=== PATIENT | male | born 1955 | race Caucasian/White ===

== ENCOUNTER 2016-10-11 13:35 | Inpatient (IN) ==
[2016-10-11] MEDS ORDERED: *HR* Morphine 2 MG/ML SYRINGE IVP ONE (13:43)
[2016-10-11] MEDS ORDERED: Ondansetron 4 MG/2 ML VIAL IVP ONE (13:43)
[2016-10-11 13:51] LABS: Basophils % 0.1 %; Eosinophils % 0.2 %; Hematocrit 40.6 % (37.5-50.1); Hemoglobin 14.1 g/dL (12.9-16.9); Immature Granulocytes % 0.8 % (0-4); Lymphocytes # 1.2 K/mcL (0.6-4.6); Mean Corpuscular HGB Conc 34.7 g/dL (31.6-35.5); Mean Corpuscular Hemoglobin 30.6 pg (28.0-33.3); Mean Corpuscular Volume 88.1 fL (83.0-100.0); Mean Platelet Volume 10.4 fL (9.4-12.4); Monocytes # 1.4 K/mcL (0.0-1.3); Neutrophils # 12.6 K/mcL (1.6-8.9); Platelet Count 288 K/mcL (140-400); Red Blood Count 4.61 M/mcL (4.19-5.50); Red Cell Distribution Width 13.4 % (11.5-14.5); Segmented Neutrophils % 81.9 %
[2016-10-11] MEDS ORDERED: Ketorolac 30 MG/ML VIAL IVP ONE (13:55)
[2016-10-11 13:57] LABS: INR 1.1; Prothrombin Time 12.1 Seconds (9.4-12.1)
[2016-10-11 14:07] LABS: Albumin 3.5 g/dL (3.5-5.0); Albumin/Globulin Ratio 0.9 (1.1-2.2); Bilirubin,Direct 0.8 mg/dL (0.0-0.5); Bilirubin,Indirect 1.3 mg/dL (0.0-1.2); Bilirubin,Total 2.1 mg/dL (0.2-1.2); Calcium 10.3 mg/dL (8.6-10.8); Globulin 3.8 g/dL (2.4-3.5); Total Protein 7.3 g/dL (6.0-8.3)
[2016-10-11] MEDS ORDERED: 0.9 % Sodium Chloride 1,000 ML IVC ONE ×2 (14:07→16:11)
[2016-10-11 14:08] LABS: Bilirubin,Urine Small (Negative); Blood,Urine Negative (Negative); Clarity,Urine Clear (Clear); Color,Urine Dark Yellow (Yellow); Glucose,Urine (UA) >=1000 mg/dL (Normal); Ketones,Urine Negative (Negative); Leukocyte Esterase,Urine Negative (Negative); Nitrite,Urine Negative (Negative); Protein,Urine Trace mg/dL (Neg-Trace); Specific Gravity,Urine > 1.030 (1.010-1.025); Urobilinogen,Urine Normal (Normal)
[2016-10-11 14:10] LABS: Bacteria,Urine None Seen per hpf (None-Few); Hyaline Casts,Urine None Seen per lpf (None-Few); RBC,Urine 0-3 per hpf (0-3); Squamous Epithelial Cell,Urine Moderate per lpf (None-Few); WBC,Urine 0-3 per hpf (0-3)
[2016-10-11] MEDS ORDERED: 0.9 % Sodium Chloride 1,000 ML ONE (14:38)
[2016-10-11] MEDS ORDERED: MetroNIDAZOLE 500 MG/100 ML 500 MG/100 ML BAG IVPB ONE (15:11)
[2016-10-11] MEDS ORDERED: Milk and Molasses Enema 200 ML RC ONE (15:13)
--- NOTE | 2016-10-11 15:38 | Emergency Department Note ---
Disposition Clinical Impression: Constipation, Sigmoiditis, Dehydration, Lactic acidosis, Leukocytosis, Chronic hypotension, Urinary retention Disposition: Admitted As Inpatient Condition: Serious Referrals: Óscar Mei Jr, MD [Primary Care Provider] - Forms: Work/School Release, ED Satisfaction Letter Time of Disposition: 15:46 Abdominal Pain HPI - General Chief Complaint: ED Abdominal Pain Stated Complaint: constipation/dizzy Time Seen by Provider: 10/11/16 13:43 Source: patient, EMS Nursing Notes Reviewed: Yes Vital Signs Reviewed: Yes - History of Present Illness HPI Narrative: 61yo M presents to the ER for constipation and abdominal pain and dehydration. [place] [facility]. he has had increasing abdominal pain for the past week and has had no bowel movements for at least 6-7 days. He admits to liquid stool passing around this constipation. Denies vomiting but does feel sick to her stomach. Poor by mouth intake for the past week as well. He denies any chest pain or shortness of breath. No fevers. No chills. He does admit to increasing weakness. Onset (ago): day(s) (6-7 days ago) Consistency: constant Location: suprapubic Pain Severity: moderate Pain Scale: 2 Quality: aching, fullness Radiation: none Migration to: no migration Improves with: nothing Worsens with: eating, movement Associated symptoms: Reports: nausea, constipation. Denies: vomiting, diarrhea , fever, chills Treatments prior to arrival: none - Related Data Allergies Allergy/AdvReac Type Severity Reaction Status Date / Time No Known Allergies Allergy Verified 10/11/16 13:49 All systems ED: reviewed and negative except as stated. Constitutional: Reports: as per HPI Eyes: Reports: as per HPI Cardiovascular: Reports: as per HPI. Denies: chest pain, palpitations Respiratory: Reports: as per HPI. Denies: dyspnea Gastrointestinal: Reports: abdominal pain, nausea, constipation. Denies: vomiting Genitourinary: Reports: other (Decreased urine output) Musculoskeletal: Reports: as per HPI Integumentary: Reports: as per HPI Neurological: Reports: as per HPI Psychiatric: Reports: as per HPI Endocrine: Reports: as per HPI Hematological/Lymphatic: Reports: as per HPI Abdominal Pain PMH - Past Medical History Medical history: Reports: diabetes, GERD, hypertension, other Male Surgical History: Reports: coronary bypass (CABG), pacemaker/AICD Psychiatric history: Reports: depression - Social History Smoking status: Never smoker Alcohol use: Reports: none Drug use: Reports: none Physical Exam - General Limitations: age General appearance: alert, in no apparent distress - Head Head exam: atraumatic, normocephalic - Chest Chest inspection: Present: normal inspection - Respiratory Respiratory exam: Present: normal lung sounds bilaterally - Cardiovascular Cardiovascular exam: Present: regular rate, normal rhythm - Abdominal Exam Abdominal exam: Present: soft, tenderness, distention (Suprapubic distention noted on exam. Positive pain to palpation to this region.), diminished bowel sounds Abdominal tenderness: Present: suprapubic - Extremities Exam Extremities exam: Present: normal inspection - Back Exam Back exam: Present: normal inspection - Neurological Exam Neurological exam: Present: alert, oriented X3 - Psychiatric Psychiatric exam: Present: normal affect, normal mood - Skin Skin exam: Present: warm, dry, other (Psoriasis type rash) Course Course Narrative: Concerns on arrival for bladder distention likely secondary to significant constipation. He placed a Florence catheter and got 2 L of urine back almost immediately. We then clamped the Florence catheter. We then started getting a some IV fluids as his lactate was elevated at 7.2. He was afebrile. I suspect this to be from dehydration. His BUN/creatinine are also elevated. He does admit to poor by mouth intake secondary to the pain for the past week. I did a CT scan abdomen and pelvis which showed evidence of significant constipation as well as evidence of sigmoiditis. He does have an elevated white count. I started him on Levaquin and Flagyl for this. He is also getting IV fluids. We have gotten around 2700 mL's of urine back after the catheter was placed. His abdominal pain has improved. His blood pressure remains low but he states he runs chronically low at around 85 systolic. the hospitalist saw the patient and thought he might need ICU placement overnight. will speak with ICU attending. Vital Signs Temperature 97.6 F 10/11/16 13:37 Pulse Rate 96 10/11/16 13:37 Respiratory Rate 18 10/11/16 13:37 Blood Pressure 68/52 10/11/16 13:37 O2 Sat by Pulse Oximetry 99 10/11/16 13:37 Temperature 97.6 F 10/11/16 13:37 Pulse Rate 80 10/11/16 15:06 Respiratory Rate 18 10/11/16 15:06 Blood Pressure 99/60 10/11/16 15:06 O2 Sat by Pulse Oximetry 98 10/11/16 15:06 Oxygen Delivery Oxygen Delivery Room Air Abdominal Pain - MDM Narrative Medical decision making narrative: It is likely the patient could be constipated from starting Cymbalta. - Medical Records Medical records reviewed: Yes I reviewed the patient's medical records. - Lab Data Lab results reviewed: Yes I reviewed the patient's lab results. Result diagrams: 10/11/16 13:42 10/11/16 13:42 Lab Results 10/11/16 10/11/16 10/11/16 Range/Units 13:42 13:42 13:42 WBC 15.4 H (4.3-11.1) K/mcL RBC 4.61 (4.19-5.50) M/mcL Hgb 14.1 (12.9-16.9) g/dL Hct 40.6 (37.5-50.1) % MCV 88.1 (83.0-100.0) fL MCH 30.6 (28.0-33.3) pg MCHC 34.7 (31.6-35.5) g/dL RDW 13.4 (11.5-14.5) % Plt Count 288 (140-400) K/mcL MPV 10.4 (9.4-12.4) fL Immature Gran % 0.8 (0-4) % Seg Neutrophils % 81.9 % Lymphocytes % 8.0 % Monocytes % 9.0 % Eosinophils % 0.2 % Basophils % 0.1 % Neutrophils # 12.6 H (1.6-8.9) K/mcL Lymphocytes # 1.2 (0.6-4.6) K/mcL Monocytes # 1.4 H (0.0-1.3) K/mcL Eosinophils # 0.0 (0.0-0.6) K/mcL Basophils # 0.0 (0.0-0.2) K/mcL PT 12.1 (9.4-12.1) Seconds INR 1.1 Sodium 134 L (136-145) mEq/L Potassium 4.0 (3.5-4.5) mEq/L Chloride 95 L (98-109) mEq/L Carbon Dioxide 22 (19-29) mEq/L BUN 43 H (8-26) mg/dL Creatinine 2.35 H (0.72-1.25) mg/dL Est GFR ( Amer) 34 L (> 60) Est GFR (Non-Af Amer) 28 L (> 60) BUN/Creatinine Ratio 18 (6-26) Glucose 119 H (70-99) mg/dL Calculated Osmolality 290 (280-300) Lactic Acid (0.5-2.2) mmol/L Calcium 10.3 (8.6-10.8) mg/dL Total Bilirubin 2.1 H (0.2-1.2) mg/dL Direct Bilirubin 0.8 H (0.0-0.5) mg/dL Indirect Bilirubin 1.3 H (0.0-1.2) mg/dL AST 17 (5-34) Units/L ALT 15 (0-55) Units/L Alkaline Phosphatase 105 (38-126) Units/L Troponin I (0-0.03) ng/mL Serum Total Protein 7.3 (6.0-8.3) g/dL Albumin 3.5 (3.5-5.0) g/dL Globulin 3.8 H (2.4-3.5) g/dL Albumin/Globulin Ratio 0.9 L (1.1-2.2) Lipase 8 (8-78) Units/L Urine Color (Yellow) Urine Clarity (Clear) Urine pH (5.0-8.0) pH Units Ur Specific [place] (1.010-1.025) Urine Protein (Neg-Trace) mg/dL Urine Glucose (UA) (Normal) mg/dL Urine Ketones (Negative) mg/dL Urine Blood (Negative) Urine Nitrite (Negative) Urine Bilirubin (Negative) Urine Urobilinogen (Normal) mg/dL Ur Leukocyte Esterase (Negative) Urine Microscopic RBC (0-3) per hpf Urine Microscopic WBC (0-3) per hpf Ur Squamous Epith Cells (None-Few) per lpf Urine Bacteria (None-Few) per hpf Hyaline Casts (None-Few) per lpf Ur Culture Indicated? (NO) 10/11/16 10/11/16 10/11/16 Range/Units 13:42 13:42 13:59 WBC (4.3-11.1) K/mcL RBC (4.19-5.50) M/mcL Hgb (12.9-16.9) g/dL Hct (37.5-50.1) % MCV (83.0-100.0) fL MCH (28.0-33.3) pg MCHC (31.6-35.5) g/dL RDW (11.5-14.5) % Plt Count (140-400) K/mcL MPV (9.4-12.4) fL Immature Gran % (0-4) % Seg Neutrophils % % Lymphocytes % % Monocytes % % Eosinophils % % Basophils % % Neutrophils # (1.6-8.9) K/mcL Lymphocytes # (0.6-4.6) K/mcL Monocytes # (0.0-1.3) K/mcL Eosinophils # (0.0-0.6) K/mcL Basophils # (0.0-0.2) K/mcL PT (9.4-12.1) Seconds INR Sodium (136-145) mEq/L Potassium (3.5-4.5) mEq/L Chloride (98-109) mEq/L Carbon Dioxide (19-29) mEq/L BUN (8-26) mg/dL Creatinine (0.72-1.25) mg/dL Est GFR ( Amer) (> 60) Est GFR (Non-Af Amer) (> 60) BUN/Creatinine Ratio (6-26) Glucose (70-99) mg/dL Calculated Osmolality (280-300) Lactic Acid 7.2 H* (0.5-2.2) mmol/L Calcium (8.6-10.8) mg/dL Total Bilirubin (0.2-1.2) mg/dL Direct Bilirubin (0.0-0.5) mg/dL Indirect Bilirubin (0.0-1.2) mg/dL AST (5-34) Units/L ALT (0-55) Units/L Alkaline Phosphatase (38-126) Units/L Troponin I 1.94 H* (0-0.03) ng/mL Serum Total Protein (6.0-8.3) g/dL Albumin (3.5-5.0) g/dL Globulin (2.4-3.5) g/dL Albumin/Globulin Ratio (1.1-2.2) Lipase (8-78) Units/L Urine Color Dark Yellow (Yellow) Urine Clarity Clear (Clear) Urine pH 6.0 (5.0-8.0) pH Units Ur Specific [place] > 1.030 H (1.010-1.025) Urine Protein Trace (Neg-Trace) mg/dL Urine Glucose (UA) >=1000 H (Normal) mg/dL Urine Ketones Negative (Negative) mg/dL Urine Blood Negative (Negative) Urine Nitrite Negative (Negative) Urine Bilirubin Small H (Negative) Urine Urobilinogen Normal (Normal) mg/dL Ur Leukocyte Esterase Negative (Negative) Urine Microscopic RBC 0-3 (0-3) per hpf Urine Microscopic WBC 0-3 (0-3) per hpf Ur Squamous Epith Cells Moderate H (None-Few) per lpf Urine Bacteria None Seen (None-Few) per hpf Hyaline Casts None Seen (None-Few) per lpf Ur Culture Indicated? NO (NO) - Radiology Data Radiology results reviewed: Yes I reviewed the patient's radiology results. - EKG Data EKG attestation: Yes I reviewed and interpreted this EKG. EKG results narrative: EKG shows a rate of 98. Normal sinus rhythm. Normal axis. IA interval 188. QRS 94. QT 379. T-wave inversions noted in V2 V3. These were seen on EKG from earlier today at the [place] [facility].
[2016-10-11] MEDS ORDERED: Levofloxacin 500 MG/100 ML 500 MG/100 ML BAG IVPB SCH (16:00)
--- NOTE | 2016-10-11 16:29 | Pulmonology History & Physical ---
<Sushil Rudolph - Last Filed: 10/11/16 16:48> Date of Encounter: 10/11/16 Time of Encounter: 16:27 Assessment and Plan (1) Constipation Current visit: Yes Status: Acute The patient has extensive vascular history and lactic acid of 7.2 with symptoms of dizziness as well as troponin of 1.94. Appropriate to admit to the ICU for close observation at this time. Urine specific gravity consistent with dehydration. Will monitor and repeat labs after additional fluids have been given. Milk and molasses enema ordered. CT of the abdomen demonstrated large about of stool within the rectum as well as a moderate amount of gas and stool throughout the remainder of the colon consistent with constipation. There is wall thickening and adjacent inflammatory changes surrounding the sigmoid. Findings consistent with sigmoiditis. Will continue IV antibiotics at this time. Metronidazole and levofloxacin. Dulcolax ordered. If patient is stable overnight will transfer to step down tomorrow. Qualifiers: Constipation type: slow transit constipation Qualified Code(s): K59.01 - Slow transit constipation (2) Chronic hypotension Current visit: Yes Status: Chronic Patient states that his blood pressures are typically in the 80s systolic. Patient is at his baseline. (3) Dehydration Current visit: Yes Status: Acute (4) Lactic acidosis Current visit: Yes Status: Acute Scheduled redraw with recheck in the morning. Will continue to monitor and trend. (5) Leukocytosis Current visit: Yes Status: Acute Will continue to monitor. Unclear etiology at this time. Qualifiers: Leukocytosis type: unspecified Qualified Code(s): D72.829 - Elevated white blood cell count, unspecified (6) Sigmoiditis Current visit: Yes Status: Acute Unclear etiology at this time. Ischemia vs infectious. Continue antibiotics at this time. If lactic acid and white count continue to increase will obtain a surgical consult. (7) Urinary retention Current visit: Yes Status: Acute Likely secondary to stool burden causing compressive obstruction of urethra. Will continue catheter at this time. Upon decrease of stool burden with discontinue goff and assess for urinary output. If the patient has continued urinary retention a urology consult will be necessary. (8) Psoriasis Current visit: Yes Status: Acute Continue home medications. (9) DVT prophylaxis Current visit: Yes Status: Acute CARLOS hose and SCDs. Protonix for GI prophylaxis. History of Present Illness Chief complaint: constipation HPI: Mr. Siu is a 61 year old male with PMH significant for psoriasis, DM2, GERD, HTN, CAD, colon cancer status post resection who presented to the ER for abdominal pain and constipation. He states that his symptoms started one week ago and he has not had a bowel movement since that time. He admits to small liquid bowel movements, but continues to feel distended. His abdominal pain causes him to have nausea and poor oral intake over this time period as well. He denies vomiting. He states that he did not have any blood in stools prior to the onset of his symptoms. He has never had anything like this before and he denies any recent changes to medications. His mother in law in the room states that the patient is typically bed bound and lives at home, but on good days he is able to ambulate around the house with a walker. He states that the reason for being bed bound is that he becomes very dizzy at times even when he sits up. He states that this has been ongoing for the past 10 months. 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 While in the ER he was given 2L of fluids and was started on metronidazol and levofloxacin for findings of sigmoiditis on abdominal CT. He was found to have a lactic acid of 7.2 and troponin of 1.94. He denies any chest pain. Past Med Surg Social Fam HX - Past Medical History Medical history: diabetes, GERD, hypertension, other Psychiatric history: depression - Past Surgical History Surgical History: colectomy (partial secondary to colon cancer), coronary bypass (CABG) (x6), other (carpal tunnel surgery bilaterally), pacemaker - Social History Smoking Status: Never smoker Alcohol use: none Drug use: none - Family History Mother Hx Family Cardiac Disorders: Yes (heart failure) Hx Family GI Disorders: Yes (DM2) Father Hx Family Cardiac Disorders: Yes (heart failure) Hx Family Endocrine Disorder: Yes (DM2) Medications and Allergies Atorvastatin Calcium [Lipitor] 80 mg PO HS 10/11/16 [History] Cholecalciferol (D-3) [Vitamin D] 1,000 unit PO DAILY 10/11/16 [History] Clobetasol Propionate 0.05% [Temovate] 1 appl TP BID 10/11/16 [History] Clobetasol Propionate [Cormax] 1 appl TP BID PRN 10/11/16 [History] Clopidogrel [Plavix] 75 mg PO DAILY 10/11/16 [History] Dextrose [Glucose] 16 gm PO ONCE PRN 10/11/16 [History] Duloxetine HCl [Cymbalta] 60 mg PO DAILY 10/11/16 [History] Folic Acid 1 mg PO DAILY 10/11/16 [History] Insulin ASPART [NovoLOG] 18 unit SQ TIDWM 10/11/16 [History] Insulin DETEMIR [Levemir] 44 unit SQ BID 10/11/16 [History] Loratadine [Claritin] 10 mg PO DAILY 10/11/16 [History] Metformin HCl [Glucophage] 1,000 mg PO BID 10/11/16 [History] Methotrexate [Otrexup] 10 mg PO QWEEK 10/11/16 [History] Midodrine [ProAmatine] 5 mg PO 0800,1200,1700 10/11/16 [History] Allergies alcohol Adverse Reaction (Verified 10/11/16 16:04) See Comments per [facility] ([facility]) All Systems: A 10-system review of systems was performed and is negative for pertinent findings except as documented above in the HPI. - Constitutional Constitutional: weakness, no chills, no fever(s) - EENT Eyes: no loss of vision Ears: no decreased hearing Nose, mouth and throat: dizziness, no dysphagia - Cardiovascular Cardiovascular: no chest pain, no diaphoresis, no dyspnea, no edema, no palpitations - Respiratory Respiratory: no cough, no dyspnea, no hemoptysis - Gastrointestinal Gastrointestinal: abdominal pain, nausea, other (constipation), no hematemesis, no hematochezia, no melena, no vomiting - Genitourinary Genitourinary: difficulty urinating, no dysuria - Musculoskeletal Musculoskeletal: joint pain, muscle weakness, numbness (feet, chronic), tingling , no joint swelling - Integumentary Integumentary: rash - Neurological Neurological: dizziness, numbness (feet bilaterally), tingling, weakness (lower extremities) - Endocrine Endocrine: no cold intolerance, no heat intolerance - Hematologic/Lymphatic Hematologic/Lymphatic: no easy bleeding, no easy bruising Physical Examination General appearance: no acute distress Eyes: nonicteric ENT: oropharynx moist Neck: supple Effort: normal Inspection: normal Auscultation: bilateral: clear Cardiovascular: regular rate and rhythm, murmur noted Gastrointestinal: normoactive bowel sounds, tender (diffusely), non-distended Integumentary: rash (psoriatric plaques) Extremities: no cyanosis other (numbness present bilaterally on feet) Results - Laboratory Findings CBC and BMP: 10/11/16 13:42 10/11/16 13:42 PT/INR, D-dimer PT 12.1 Seconds (9.4-12.1) 10/11/16 13:42 Abnormal lab findings: Abnormal lab results WBC 15.4 K/mcL (4.3-11.1) H 10/11/16 13:42 Neutrophils # 12.6 K/mcL (1.6-8.9) H 10/11/16 13:42 Monocytes # 1.4 K/mcL (0.0-1.3) H 10/11/16 13:42 Sodium 134 mEq/L (136-145) L 10/11/16 13:42 Chloride 95 mEq/L (98-109) L 10/11/16 13:42 BUN 43 mg/dL (8-26) H 10/11/16 13:42 Creatinine 2.35 mg/dL (0.72-1.25) H 10/11/16 13:42 Est GFR ( Amer) 34 (> 60) L 10/11/16 13:42 Est GFR (Non-Af Amer) 28 (> 60) L 10/11/16 13:42 Glucose 119 mg/dL (70-99) H 10/11/16 13:42 Lactic Acid 7.2 mmol/L (0.5-2.2) H* 10/11/16 13:42 Total Bilirubin 2.1 mg/dL (0.2-1.2) H 10/11/16 13:42 Direct Bilirubin 0.8 mg/dL (0.0-0.5) H 10/11/16 13:42 Indirect Bilirubin 1.3 mg/dL (0.0-1.2) H 10/11/16 13:42 Troponin I 1.94 ng/mL (0-0.03) H* 10/11/16 13:42 Globulin 3.8 g/dL (2.4-3.5) H 10/11/16 13:42 Albumin/Globulin Ratio 0.9 (1.1-2.2) L 10/11/16 13:42 Ur Specific [place] > 1.030 (1.010-1.025) H 10/11/16 13:59 Urine Glucose (UA) >=1000 mg/dL (Normal) H 10/11/16 13:59 Urine Bilirubin Small (Negative) H 10/11/16 13:59 Ur Squamous Epith Cells Moderate per lpf (None-Few) H 10/11/16 13:59 - Attending Attestation I examined this patient and my medical decision-making was reviewed with the SHOP COOPER/PA/Advanced Practice Nurse/Resident Physician. I agree with the documented findings, disposition and treatment plan as described except to the extent set forth below. <Toby Burnett M - Last Filed: 10/11/16 21:00> Date of Encounter: 10/11/16 History of Present Illness HPI: Mr. Siu is a 61 year old male All Systems: A 10-system review of systems was performed and is negative for pertinent findings except as documented above in the HPI. Physical Examination Vital Signs: Vital Signs, Last 4 Hours Temp Pulse Resp BP Pulse Ox 10/11/16 19:41 98.3 F 10/11/16 19:30 98.3 F 80 16 85/67 99 10/11/16 18:00 89 17 95/45 98 10/11/16 17:44 96.9 F L 86 18 102/58 99 Results - Laboratory Findings CBC and BMP: 10/11/16 13:42 10/11/16 13:42 PT/INR, D-dimer PT 12.1 Seconds (9.4-12.1) 10/11/16 13:42 Abnormal lab findings: Abnormal lab results WBC 15.4 K/mcL (4.3-11.1) H 10/11/16 13:42 Neutrophils # 12.6 K/mcL (1.6-8.9) H 10/11/16 13:42 Monocytes # 1.4 K/mcL (0.0-1.3) H 10/11/16 13:42 Sodium 134 mEq/L (136-145) L 10/11/16 13:42 Chloride 95 mEq/L (98-109) L 10/11/16 13:42 BUN 43 mg/dL (8-26) H 10/11/16 13:42 Creatinine 2.35 mg/dL (0.72-1.25) H 10/11/16 13:42 Est GFR ( Amer) 34 (> 60) L 10/11/16 13:42 Est GFR (Non-Af Amer) 28 (> 60) L 10/11/16 13:42 Glucose 119 mg/dL (70-99) H 10/11/16 13:42 Lactic Acid 7.2 mmol/L (0.5-2.2) H* 10/11/16 13:42 Total Bilirubin 2.1 mg/dL (0.2-1.2) H 10/11/16 13:42 Direct Bilirubin 0.8 mg/dL (0.0-0.5) H 10/11/16 13:42 Indirect Bilirubin 1.3 mg/dL (0.0-1.2) H 10/11/16 13:42 Troponin I 1.94 ng/mL (0-0.03) H* 10/11/16 13:42 Globulin 3.8 g/dL (2.4-3.5) H 10/11/16 13:42 Albumin/Globulin Ratio 0.9 (1.1-2.2) L 10/11/16 13:42 Ur Specific [place] > 1.030 (1.010-1.025) H 10/11/16 13:59 Urine Glucose (UA) >=1000 mg/dL (Normal) H 10/11/16 13:59 Urine Bilirubin Small (Negative) H 10/11/16 13:59 Ur Squamous Epith Cells Moderate per lpf (None-Few) H 10/11/16 13:59 - Attending Attestation I examined this patient and my medical decision-making was reviewed with the SHOP COOPER/PA/Advanced Practice Nurse/Resident Physician. I agree with the documented findings, disposition and treatment plan as described except to the extent set forth below. Patient seen and examined. Labs, radiology, chart personally reviewed. Agree with resident's history and physical, assessment, plan with following comments: LABOR RELATIONS DIRECTOR: Patient follows commands, Patient stated he has congenital vascular abnormalites. Pulmonary: Acceptable oxygenation and ventilation Cardiovascular: Hypotension and patient stated he normally has low BP and he was fully worked up for this in the past. I suspect there is also an element of hypovolemia. GI: Patient has constipation and it is not clear at this time the exact cause. I am suspecting there might a hypoperfusion to bowel and elevated lactic acid from there. Continue hydration and empiric antibiotics with enema, if no improvement, will consider surgical consultation. Heme: DVT prophylaxis per routine ID: Continue antibiotics and plan to de-escalation Renal; urine out put and renal funtion reviewed and IVF for now. Endorcine: blood glucose is monitored Lines: all lines checked and no evidence of infections Skin: skin care to prevent pressure ulcers per nursing routine care Patient with multiple medical problems with underlying heart disease and lactic acidosis and hypotension, patient need ICU monitoring and his overall condition is tenuous that he might deteriorate. I spent 35 min of Critical Care time with this patient. It involved decision making of high complexity to assess, manipulate, and support vital organ system failure and/or to prevent further life threatening deterioration of the patient' s condition. The time involved in the performance of separately reportable procedures was not counted toward critical care time.
[2016-10-11] MEDS ORDERED: CLOBETASOL PROPIONATE 15 GM TUBE TP PRN (17:07)
[2016-10-11] MEDS ORDERED: Naloxone 0.4 MG/ML INJ IVP PRN (17:10)
[2016-10-11] MEDS ORDERED: D5% in Water 1,000 ML IVC PRN (17:15)
[2016-10-11] MEDS ORDERED: Dextrose Gel 15 GM PO PRN ×2 (17:15)
[2016-10-11] MEDS ORDERED: *HR* Dextrose 50 % in Water (Syg) 50 ML SYRINGE IVP PRN (17:15)
[2016-10-11] MEDS ORDERED: *HR* Methotrexate 2.5 MG TABLET PO SCH (17:15)
[2016-10-11] MEDS: 0.9 % Sodium Chloride 1,000 ML IVC SCH ×2 (18:44→23:54)
[2016-10-11] MEDS ORDERED: Insulin LISPRO 300 UNITS/3 ML VIAL SQ SCH (21:00)
[2016-10-11] MEDS ORDERED: INSULIN DETEMIR 44 UNIT SQ SCH (21:00)
[2016-10-11] MEDS: Insulin DETEMIR 100 UNIT/ML X5UNITS SQ SCH (22:13)
[2016-10-11] MEDS: CLOBETASOL PROPIONATE 15 GM TUBE TP SCH (22:20)
[2016-10-12] MEDS: MetroNIDAZOLE 500 MG/100 ML 500 MG/100 ML BAG IVPB SCH ×2 (00:50→08:28)
[2016-10-12 03:38] LABS: Basophils % 0.2 %; Eosinophils # 0.1 K/mcL (0.0-0.6); Eosinophils % 0.7 %; Immature Granulocytes % 0.7 % (0-4); Lymphocytes # 1.1 K/mcL (0.6-4.6); Lymphocytes % 9.8 %; Mean Corpuscular HGB Conc 34.7 g/dL (31.6-35.5); Mean Corpuscular Hemoglobin 30.6 pg (28.0-33.3); Mean Corpuscular Volume 88.2 fL (83.0-100.0); Mean Platelet Volume 10.6 fL (9.4-12.4); Monocytes # 1.5 K/mcL (0.0-1.3); Platelet Count 193 K/mcL (140-400); Red Blood Count 3.63 M/mcL (4.19-5.50); Red Cell Distribution Width 13.3 % (11.5-14.5); Segmented Neutrophils % 74.6 %
[2016-10-12 03:46] LABS: Hemoglobin 11.1 g/dL (12.9-16.9)
[2016-10-12 03:54] LABS: BUN/Creatinine Ratio 31 (6-26); Carbon Dioxide 25 mEq/L (19-29); Chloride 103 mEq/L (98-109); Glucose 71 mg/dL (70-99); Osmolality,Calculated 285 (280-300); Potassium 4.2 mEq/L (3.5-4.5); Sodium 135 mEq/L (136-145); eGFR For African Americans > 60 (> 60); eGFR For Non-African Americans > 60 (> 60)
[2016-10-12 03:55] LABS: Blood Urea Nitrogen 31 mg/dL (8-26); Calcium 8.6 mg/dL (8.6-10.8)
[2016-10-12] MEDS: 0.9 % Sodium Chloride 1,000 ML IVC SCH ×2 (05:01→12:56)
[2016-10-12] MEDS ORDERED: Insulin LISPRO 300 UNITS/3 ML VIAL SQ SCH (07:30)
[2016-10-12] MEDS ORDERED: 0.9 % Sodium Chloride 1,000 ML IVC SCH (07:42)
[2016-10-12] MEDS: Insulin DETEMIR 100 UNIT/ML X5UNITS SQ SCH ×2 (08:29→21:41)
[2016-10-12] MEDS: CLOBETASOL PROPIONATE 15 GM TUBE TP SCH ×2 (08:31→21:42)
[2016-10-12] MEDS ORDERED: Pantoprazole 40 MG VIAL IVPB SCH (09:00)
[2016-10-12] MEDS ORDERED: Cholecalciferol (D-3) 1,000 UNIT TABLET PO SCH (09:00)
--- NOTE | 2016-10-12 10:25 | Pulmonology Progress Note ---
<Sushil Rudolph - Last Filed: 10/12/16 10:22> Date of Encounter: 10/12/16 Time of Encounter: 10:22 Assessment and Plan (1) Constipation Current Visit: Yes Status: Acute 2 BMs since administration of enema. Fluid balance +3.[address] of the abdomen 10/11: large about of stool within the rectum as well as a moderate amount of gas and stool throughout the remainder of the colon consistent with constipation. There is wall thickening and adjacent inflammatory changes surrounding the sigmoid. Findings consistent with sigmoiditis. Will change to PO antibiotics at this time. Metronidazole and levofloxacin. Continue dulcolax Transfer to step down. Qualifiers: Constipation type: slow transit constipation Qualified Code(s): K59.01 - Slow transit constipation (2) Chronic hypotension Current Visit: Yes Status: Chronic Patient states that his blood pressures are typically in the 80s systolic. Patient currently normotensive with BPs in 120s/70s. (3) Dehydration Current Visit: Yes Status: Acute Fluid balance +3.580 Liters. Creatinine 2.35 > .99 (4) Lactic acidosis Current Visit: Yes Status: Resolved 2.1 this AM (5) Leukocytosis Current Visit: Yes Status: Resolved Resolved. Continue antibiotics at this time for sigmoiditis. Qualifiers: Leukocytosis type: unspecified Qualified Code(s): D72.829 - Elevated white blood cell count, unspecified (6) Sigmoiditis Current Visit: Yes Status: Acute Ischemia vs infectious. Continue antibiotics at this time. Lactic acid and WBCs improved today. (7) Urinary retention Current Visit: Yes Status: Acute Likely secondary to stool burden causing compressive obstruction of urethra. Florence has been discontinued. Awaiting patient to have urinary output. Will monitor closely. (8) Psoriasis Current Visit: Yes Status: Acute Continue home medications. (9) DVT prophylaxis Current Visit: Yes Status: Acute Heparin SQ. Protonix for GI prophylaxis. Subjective Principal diagnosis: Constipation, dizziness Interval history: The patient was seen and examined. The patient has been given fluid resuscitation and milk and molasses enema. Has had 3 BMs since enema. Lactic acid now 2.1 decreased from 7.2 yesterday. Patient still continues to complain of some dull abdominal pain. Florence has been discontinued. Will assess for urine output. Objective PUL Vital signs: Last Vital Signs Temp 98.3 F 10/12/16 08:07 Pulse 80 10/12/16 10:00 Resp 20 10/12/16 10:00 BP 131/65 10/12/16 10:00 Pulse Ox 99 10/12/16 10:00 General appearance: no acute distress Eyes: nonicteric ENT: oropharynx moist Neck: supple Effort: normal Auscultation: bilateral: clear Cardiovascular: regular rate and rhythm, murmur noted Gastrointestinal: normoactive bowel sounds, tender (mildly tender in the LLQ), non-distended Integumentary: rash (psoriatric plaques) Extremities: no cyanosis other (numbness present bilaterally on feet.) mood appropriate Results - Laboratory Findings CBC and BMP: 10/12/16 03:00 10/12/16 03:00 PT/INR, D-dimer PT 12.1 Seconds (9.4-12.1) 10/11/16 13:42 Abnormal lab findings: Abnormal lab results RBC 3.63 M/mcL (4.19-5.50) L 10/12/16 03:00 Hgb 11.1 g/dL (12.9-16.9) L D 10/12/16 03:00 Hct 32.0 % (37.5-50.1) L 10/12/16 03:00 Monocytes # 1.5 K/mcL (0.0-1.3) H 10/12/16 03:00 Sodium 135 mEq/L (136-145) L 10/12/16 03:00 BUN 31 mg/dL (8-26) H D 10/12/16 03:00 BUN/Creatinine Ratio 31 (6-26) H 10/12/16 03:00 POC Glucose 104 (58-89) H 10/12/16 07:25 Total Bilirubin 2.1 mg/dL (0.2-1.2) H 10/11/16 13:42 Direct Bilirubin 0.8 mg/dL (0.0-0.5) H 10/11/16 13:42 Indirect Bilirubin 1.3 mg/dL (0.0-1.2) H 10/11/16 13:42 Troponin I 1.94 ng/mL (0-0.03) H* 10/11/16 13:42 Globulin 3.8 g/dL (2.4-3.5) H 10/11/16 13:42 Albumin/Globulin Ratio 0.9 (1.1-2.2) L 10/11/16 13:42 Ur Specific [place] > 1.030 (1.010-1.025) H 10/11/16 13:59 Urine Glucose (UA) >=1000 mg/dL (Normal) H 10/11/16 13:59 Urine Bilirubin Small (Negative) H 10/11/16 13:59 Ur Squamous Epith Cells Moderate per lpf (None-Few) H 10/11/16 13:59 - Clinical Findings Intake & Output: Intake & Output 10/11/16 10/12/16 10/12/16 23:59 07:59 15:59 Intake Total 1000 / 3200 1100 / 1100 580 / 580 Output Total 250 / 250 700 / 700 350 / 350 Balance 750 / 2950 400 / 400 230 / 230 Weight 70.9 kg 73 kg Consult Discharge Plan - Plan Referrals: Óscar Mei Jr, MD [Primary Care Provider] - <Toby Burnett - Last Filed: 10/12/16 16:10> Date of Encounter: 10/12/16 Objective PUL Vital signs: Last Vital Signs Temp 97.8 F 10/12/16 15:08 Pulse 70 10/12/16 15:08 Resp 16 10/12/16 15:08 BP 126/55 10/12/16 15:08 Pulse Ox 98 10/12/16 15:08 Results - Laboratory Findings CBC and BMP: 10/12/16 03:00 10/12/16 03:00 PT/INR, D-dimer PT 12.1 Seconds (9.4-12.1) 10/11/16 13:42 Abnormal lab findings: Abnormal lab results RBC 3.63 M/mcL (4.19-5.50) L 10/12/16 03:00 Hgb 11.1 g/dL (12.9-16.9) L D 10/12/16 03:00 Hct 32.0 % (37.5-50.1) L 10/12/16 03:00 Monocytes # 1.5 K/mcL (0.0-1.3) H 10/12/16 03:00 Sodium 135 mEq/L (136-145) L 10/12/16 03:00 BUN 31 mg/dL (8-26) H D 10/12/16 03:00 BUN/Creatinine Ratio 31 (6-26) H 10/12/16 03:00 POC Glucose 171 (58-89) H 10/12/16 11:28 Total Bilirubin 2.1 mg/dL (0.2-1.2) H 10/11/16 13:42 Direct Bilirubin 0.8 mg/dL (0.0-0.5) H 10/11/16 13:42 Indirect Bilirubin 1.3 mg/dL (0.0-1.2) H 10/11/16 13:42 Troponin I 0.62 ng/mL (0-0.03) H* 10/12/16 10:40 Globulin 3.8 g/dL (2.4-3.5) H 10/11/16 13:42 Albumin/Globulin Ratio 0.9 (1.1-2.2) L 10/11/16 13:42 Ur Specific [place] > 1.030 (1.010-1.025) H 10/11/16 13:59 Urine Glucose (UA) >=1000 mg/dL (Normal) H 10/11/16 13:59 Urine Bilirubin Small (Negative) H 10/11/16 13:59 Ur Squamous Epith Cells Moderate per lpf (None-Few) H 10/11/16 13:59 - Clinical Findings Intake & Output: Intake & Output 10/12/16 10/12/16 10/12/16 07:59 15:59 23:59 Intake Total 1100 / 1100 820 / 820 Output Total 700 / 700 350 / 350 Balance 400 / 400 470 / 470 Weight 73 kg 74.049 kg - Attending Attestation I examined this patient and my medical decision-making was reviewed with the [employer] INSTALLER REPAIRER/PA/Advanced Practice Nurse/Resident Physician. I agree with the documented findings, disposition and treatment plan as described except to the extent set forth below. Patient seen and examined. Labs, radiology, chart personally reviewed. 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 Patient had bowel movement. He will need colonscopy as outpatient and follow up with his PCP. Heme: DVT prophylaxis per routine ID: Continue antibiotics and plan to de-escalation Renal; urine out put and renal funtion reviewed. Remove Florence catheter and if still have urinary retention need to consult urology. Endorcine: blood glucose is monitored Lines: all lines checked and no evidence of infections Skin: skin care to prevent pressure ulcers per nursing routine care Stable and was transferred to floor.
[2016-10-12] MEDS ORDERED: *HR* Dextrose 50 % in Water (Syg) 50 ML SYRINGE IVP PRN (12:21)
[2016-10-12] MEDS ORDERED: Dextrose Gel 15 GM PO PRN (12:21)
[2016-10-12] MEDS ORDERED: D5% in Water 1,000 ML IVC PRN (12:21)
[2016-10-12] MEDS ORDERED: CLOBETASOL PROPIONATE 15 GM TUBE TP PRN (12:21)
[2016-10-12] MEDS ORDERED: Naloxone 0.4 MG/ML INJ IVP PRN (12:21)
[2016-10-12] MEDS ORDERED: levoFLOXacin 750 MG TABLET PO SCH (16:00)
[2016-10-12] MEDS ORDERED: metroNIDAZOLE 500 MG TABLET PO SCH (16:00)
[2016-10-12] MEDS: Insulin LISPRO 300 UNITS/3 ML VIAL SQ SCH ×2 (16:38→21:41)
[2016-10-12] MEDS: *HR* Heparin 5,000 UNIT/ML VIAL SQ SCH (16:40)
--- NOTE | 2016-10-12 16:41 | Electrocardiograph Report ---
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
[2016-10-12] MEDS ORDERED: *HR* Heparin 5,000 UNIT/ML VIAL SQ SCH (18:00)
[2016-10-12] MEDS: metroNIDAZOLE 500 MG TABLET PO SCH (21:41)
[2016-10-13] MEDS: Dextrose Gel 15 GM PO PRN ×4 (04:30→22:27)
[2016-10-13 05:26] LABS: Hematocrit 30.1 % (37.5-50.1); Hemoglobin 10.5 g/dL (12.9-16.9); Mean Corpuscular HGB Conc 34.9 g/dL (31.6-35.5); Mean Corpuscular Hemoglobin 30.5 pg (28.0-33.3); Mean Corpuscular Volume 87.5 fL (83.0-100.0); Mean Platelet Volume 10.3 fL (9.4-12.4); Platelet Count 209 K/mcL (140-400); Red Blood Count 3.44 M/mcL (4.19-5.50); Red Cell Distribution Width 13.2 % (11.5-14.5)
[2016-10-13 05:37] LABS: BUN/Creatinine Ratio 19 (6-26); Calcium 8.3 mg/dL (8.6-10.8); Carbon Dioxide 25 mEq/L (19-29); Chloride 105 mEq/L (98-109); Glucose 91 mg/dL (70-99); Magnesium 1.4 mg/dL (1.6-2.6); Osmolality,Calculated 279 (280-300); Potassium 3.3 mEq/L (3.5-4.5); Sodium 135 mEq/L (136-145); eGFR For African Americans > 60 (> 60); eGFR For Non-African Americans > 60 (> 60)
[2016-10-13 05:43] LABS: Blood Urea Nitrogen 11 mg/dL (8-26)
[2016-10-13] MEDS: *HR* Heparin 5,000 UNIT/ML VIAL SQ SCH ×2 (06:50→17:58)
[2016-10-13] MEDS: 0.9 % Sodium Chloride 1,000 ML IVC SCH ×2 (06:54→08:32)
[2016-10-13] MEDS: levoFLOXacin 750 MG TABLET PO SCH (08:26)
[2016-10-13] MEDS: metroNIDAZOLE 500 MG TABLET PO SCH ×2 (08:26→20:46)
[2016-10-13] MEDS: Cholecalciferol (D-3) 1,000 UNIT TABLET PO SCH (08:27)
[2016-10-13] MEDS: CLOBETASOL PROPIONATE 15 GM TUBE TP SCH ×2 (08:27→20:46)
[2016-10-13] MEDS: Pantoprazole 40 MG VIAL IVPB SCH (08:30)
[2016-10-13] MEDS: Insulin DETEMIR 100 UNIT/ML X5UNITS SQ SCH (08:31)
[2016-10-13] MEDS: Insulin LISPRO 300 UNITS/3 ML VIAL SQ SCH ×4 (08:32→22:14)
[2016-10-13] MEDS: Magnesium Sulfate 2 GM in D5% in Water 100 ML IVPB SCH ×2 (10:01→11:13)
--- NOTE | 2016-10-13 13:57 | Urology - Consult Note ---
Date of Encounter: 10/13/16 Time of Encounter: 13:55 - Assessment and Plan (1) Urinary retention Current Visit: Yes Status: Acute Assessment and plan: Patient will need to keep his catheter in place. Agree with continuing Flomax. Patient will need follow up next week for voiding trial in the office. This will need to be made with either Dr. Coppola or Ko as I will be out of town. Urology CN:HPI Consult date: 10/13/16 Reason for consult Urology: Other (urinary retention) Requesting physician: Eloy Cornejo History of present illness: Wilder is a 61-year-old man admitted to the hospital. Patient has had a catheter in place since arrival to the hospital. This was removed and the patient failed to void. Another catheter was replaced. Patient states that he did not have problems voiding prior to this admission in the hospital. CT scan upon arrival to the hospital revealed empty bladder secondary to catheter but large amount of stool within the colon. Past Med Surg Social Fam HX - Past Medical History Medical history: diabetes, GERD, hypertension, other Psychiatric history: depression - Past Surgical History Surgical History: colectomy (partial secondary to colon cancer), coronary bypass (CABG) (x6), other (carpal tunnel surgery bilaterally), pacemaker - Social History Smoking Status: Never smoker Alcohol use: none Drug use: none - Family History Mother Hx Family Cardiac Disorders: Yes (heart failure) Hx Family GI Disorders: Yes (DM2) Father Hx Family Cardiac Disorders: Yes (heart failure) Hx Family Endocrine Disorder: Yes (DM2) Medications and Allergies Atorvastatin Calcium [Lipitor] 80 mg PO HS 10/11/16 [History] Cholecalciferol (D-3) [Vitamin D] 1,000 unit PO DAILY 10/11/16 [History] Clobetasol Propionate 0.05% [Temovate] 1 appl TP BID 10/11/16 [History] Clobetasol Propionate [Cormax] 1 appl TP BID PRN 10/11/16 [History] Clopidogrel [Plavix] 75 mg PO DAILY 10/11/16 [History] Dextrose [Glucose] 16 gm PO ONCE PRN 10/11/16 [History] Duloxetine HCl [Cymbalta] 60 mg PO DAILY 10/11/16 [History] Folic Acid 1 mg PO DAILY 10/11/16 [History] Insulin ASPART [NovoLOG] 18 unit SQ TIDWM 10/11/16 [History] Insulin DETEMIR [Levemir] 44 unit SQ BID 10/11/16 [History] Loratadine [Claritin] 10 mg PO DAILY 10/11/16 [History] Metformin HCl [Glucophage] 1,000 mg PO BID 10/11/16 [History] Methotrexate [Otrexup] 10 mg PO QWEEK 10/11/16 [History] Midodrine [ProAmatine] 5 mg PO 0800,1200,1700 10/11/16 [History] Allergies alcohol Adverse Reaction (Verified 10/11/16 16:04) See Comments per [facility] ([facility]) Review of Systems ROS unobtainable: due to mental status Exam Initial Vital Signs Temp Pulse Resp BP Pulse Ox 97.6 F 96 18 68/52 99 10/11/16 13:37 10/11/16 13:37 10/11/16 13:37 10/11/16 13:37 10/11/16 13:37 - General physical appearance Present: well developed - Respiratory Present: normal respiratory effort - Cardiovascular Cardiovascular exam IM: RRR - Abdomen Abdomen: Present: soft - Genitourinary other (catheter in place with clear urine) Urology Results - Labs 10/13/16 05:10 10/13/16 05:10 Abnormal lab results RBC 3.44 M/mcL (4.19-5.50) L 10/13/16 05:10 Hgb 10.5 g/dL (12.9-16.9) L 10/13/16 05:10 Hct 30.1 % (37.5-50.1) L 10/13/16 05:10 Monocytes # 1.5 K/mcL (0.0-1.3) H 10/12/16 03:00 Sodium 135 mEq/L (136-145) L 10/13/16 05:10 Potassium 3.3 mEq/L (3.5-4.5) L 10/13/16 05:10 Creatinine 0.58 mg/dL (0.72-1.25) L 10/13/16 05:10 POC Glucose 46 (58-89) L* 10/13/16 13:35 Calculated Osmolality 279 (280-300) L 10/13/16 05:10 Calcium 8.3 mg/dL (8.6-10.8) L 10/13/16 05:10 Magnesium 1.4 mg/dL (1.6-2.6) L 10/13/16 05:10 Total Bilirubin 2.1 mg/dL (0.2-1.2) H 10/11/16 13:42 Direct Bilirubin 0.8 mg/dL (0.0-0.5) H 10/11/16 13:42 Indirect Bilirubin 1.3 mg/dL (0.0-1.2) H 10/11/16 13:42 Troponin I 0.62 ng/mL (0-0.03) H* 10/12/16 10:40 Globulin 3.8 g/dL (2.4-3.5) H 10/11/16 13:42 Albumin/Globulin Ratio 0.9 (1.1-2.2) L 10/11/16 13:42 Ur Specific [place] > 1.030 (1.010-1.025) H 10/11/16 13:59 Urine Glucose (UA) >=1000 mg/dL (Normal) H 10/11/16 13:59 Urine Bilirubin Small (Negative) H 10/11/16 13:59 Ur Squamous Epith Cells Moderate per lpf (None-Few) H 10/11/16 13:59 All other labs normal. - Imaging CT scan - abdomen: image reviewed CT scan - pelvis: image reviewed Consult Discharge Plan - Plan Referrals: Óscar Mei Jr, MD [Primary Care Provider] -
[2016-10-13] MEDS ORDERED: Dextrose Gel 15 GM PO ONE (22:15)
[2016-10-14 04:45] LABS: Basophils % 0.2 %; Eosinophils # 0.1 K/mcL (0.0-0.6); Eosinophils % 1.1 %; Hematocrit 31.2 % (37.5-50.1); Hemoglobin 10.8 g/dL (12.9-16.9); Immature Granulocytes % 0.3 % (0-4); Lymphocytes # 0.9 K/mcL (0.6-4.6); Lymphocytes % 15.1 %; Mean Corpuscular HGB Conc 34.6 g/dL (31.6-35.5); Mean Corpuscular Hemoglobin 30.3 pg (28.0-33.3); Mean Corpuscular Volume 87.4 fL (83.0-100.0); Mean Platelet Volume 10.4 fL (9.4-12.4); Monocytes # 0.4 K/mcL (0.0-1.3); Monocytes % 6.2 %; Neutrophils # 4.8 K/mcL (1.6-8.9); Platelet Count 257 K/mcL (140-400); Red Blood Count 3.57 M/mcL (4.19-5.50); Red Cell Distribution Width 13.2 % (11.5-14.5); Segmented Neutrophils % 77.1 %
[2016-10-14 05:05] LABS: BUN/Creatinine Ratio 12 (6-26); Blood Urea Nitrogen 7 mg/dL (8-26); Calcium 8.3 mg/dL (8.6-10.8); Carbon Dioxide 27 mEq/L (19-29); Chloride 103 mEq/L (98-109); Glucose 98 mg/dL (70-99); Osmolality,Calculated 280 (280-300); Potassium 3.6 mEq/L (3.5-4.5); Sodium 136 mEq/L (136-145); eGFR For African Americans > 60 (> 60); eGFR For Non-African Americans > 60 (> 60)
[2016-10-14] MEDS: *HR* Heparin 5,000 UNIT/ML VIAL SQ SCH ×2 (06:22→18:38)
[2016-10-14] MEDS: Insulin LISPRO 300 UNITS/3 ML VIAL SQ SCH ×4 (08:29→22:22)
[2016-10-14] MEDS: metroNIDAZOLE 500 MG TABLET PO SCH ×2 (08:52→22:21)
[2016-10-14] MEDS: Cholecalciferol (D-3) 1,000 UNIT TABLET PO SCH (08:52)
[2016-10-14] MEDS: levoFLOXacin 750 MG TABLET PO SCH (08:52)
[2016-10-14] MEDS: CLOBETASOL PROPIONATE 15 GM TUBE TP SCH ×2 (08:53→22:26)
[2016-10-14] MEDS: Pantoprazole 40 MG VIAL IVPB SCH (08:53)
--- NOTE | 2016-10-14 08:57 | Internal Med Progress Note ---
Date of Encounter: 10/13/16 Time of Encounter: 11:00 - Assessment and plan (1) Hypokalemia Current Visit: Yes Status: Acute Assessment and plan: supplement potassium AND CONITNE MONITORING. (2) Hypomagnesemia Current Visit: Yes Status: Acute Assessment and plan: supplement magnesium and continue monitoring. (3) Cholelithiasis Current Visit: Yes Status: Acute Qualifiers: Cholelithiasis location: gallbladder Cholecystitis presence: without cholecystitis Biliary obstruction: without biliary obstruction Qualified Code(s): K80.20 - Calculus of gallbladder without cholecystitis without obstruction (4) Sigmoiditis Current Visit: Yes Status: Acute Assessment and plan: continue with antibioitcs. (5) Urinary retention Current Visit: Yes Status: Acute Assessment and plan: floey placed again, urology consulted, flomax started. (6) DVT prophylaxis Current Visit: Yes Status: Acute - Time Spent With Patient 25 - 35 minutes - Subjective Interval history: 1st encounter with the patient. - Constitutional Vitals: Temp Pulse Resp BP Pulse Ox 97.9 F 76 17 135/75 94 10/14/16 07:49 10/14/16 07:49 10/14/16 07:49 10/14/16 07:49 10/14/16 07:49 General appearance: Present: cooperative, A&O X 3, pleasant - Head Head exam: Present: atraumatic, normocephalic - Eye Eye exam: Present: PERRL, conjuntiva pink, sclera anicteric Pupils: Present: PERRL - Neck Neck exam general surgery: Present: supple, trachea midline. Absent: lymphadenopathy - Respiratory Respiratory exam: Present: CTAB. Absent: accessory muscle use, rales, rhonchi, wheezes - Cardiovascular Cardiovascular exam: Present: RRR, +S1, +S2. Absent: diastolic murmur, gallop, rubs, systolic murmur - GI/Abdominal GI/Abdominal exam: Present: normal bowel sounds, soft, no peritoneal signs. Absent: distended, tenderness - Extremities Exam Extremities exam: Present: warm, radial pulses palpable and symetrical. Absent : calf tenderness, cyanotic, pedal edema - Neurological Exam Neurological exam: Present: CN II-XII intact, oriented X3, no focal deficits. Absent: pronater drift, facial droop, speech deficit - Skin Skin exam: Present: dry, intact Internal Medicine: Result - Labs CBC & Chem 7: 10/14/16 04:05 10/14/16 04:05 Labs: Short CBC 10/14/16 Range/Units 04:05 WBC 6.2 (4.3-11.1) K/mcL Hgb 10.8 L (12.9-16.9) g/dL Hct 31.2 L (37.5-50.1) % Plt Count 257 (140-400) K/mcL Neutrophils # 4.8 (1.6-8.9) K/mcL BMP 10/14/16 04:05 Sodium 136 Potassium 3.6 Chloride 103 Carbon Dioxide 27 BUN 7 L Creatinine 0.58 L Glucose 98 Calcium 8.3 L - ABG Interpretation ABG results: PT/INR, D-dimer PT 12.1 Seconds (9.4-12.1) 10/11/16 13:42 Consult Discharge Plan - Plan Referrals: Óscar Mei Jr, MD [Primary Care Provider] -
[2016-10-14] MEDS ORDERED: Insulin DETEMIR 100 UNIT/ML X5UNITS SQ SCH (09:00)
[2016-10-14 09:22] LABS: Magnesium 1.4 mg/dL (1.6-2.6)
[2016-10-14] MEDS: 0.9 % Sodium Chloride 1,000 ML IVC SCH (10:56)
[2016-10-14] MEDS: Magnesium Sulfate 2 GM in D5% in Water 100 ML IVPB SCH ×2 (10:56→14:54)
--- NOTE | 2016-10-14 11:49 | Internal Med Progress Note ---
Date of Encounter: 10/14/16 Time of Encounter: 11:47 - Assessment and plan (1) Sigmoiditis Current Visit: Yes Status: Acute Assessment and plan: continue with antibioitcs. no leukocytosis. (2) Hypokalemia Current Visit: Yes Status: Acute Assessment and plan: corrected, will continue monitoring. (3) Hypomagnesemia Current Visit: Yes Status: Acute Assessment and plan: magnesium today 1.4 in despite of iv supplementation, will supplement magnesium via iv today and continue monitoring. (4) Cholelithiasis Current Visit: Yes Status: Acute Assessment and plan: abd ct report noted, will obtain an abd US of the RUQ today, will keep the patient NPO in the mean time. Will consider surgical eval according to results. D/W patient. Qualifiers: Cholelithiasis location: gallbladder Cholecystitis presence: without cholecystitis Biliary obstruction: without biliary obstruction Qualified Code(s): K80.20 - Calculus of gallbladder without cholecystitis without obstruction (5) Urinary retention Current Visit: Yes Status: Acute Assessment and plan: goff placed yesterday, urology consulted, continue with flomax. plan is to continue with goff upon discharge and follow up with urology as outpatient. (6) DVT prophylaxis Current Visit: Yes Status: Acute Assessment and plan: continue with heparin. - Subjective Interval history: patient seen and exmined. he complains of abdominal pain, epgastrci area, denies nausea or vomiting. - Constitutional Vitals: Temp Pulse Resp BP Pulse Ox 98.2 F 83 16 129/73 98 10/14/16 11:16 10/14/16 11:16 10/14/16 11:16 10/14/16 11:16 10/14/16 11:16 General appearance: Present: cooperative, A&O X 3, pleasant Exam: rash in elbows and lower abdomen. - Head Head exam: Present: atraumatic, normocephalic - Eye Eye exam: Present: PERRL, conjuntiva pink, sclera anicteric Pupils: Present: PERRL - Neck Neck exam general surgery: Present: supple, trachea midline. Absent: lymphadenopathy - Respiratory Respiratory exam: Present: CTAB. Absent: accessory muscle use, rales, rhonchi, wheezes - Cardiovascular Cardiovascular exam: Present: RRR, +S1, +S2. Absent: diastolic murmur, gallop, rubs, systolic murmur - GI/Abdominal GI/Abdominal exam: Present: normal bowel sounds, soft, no peritoneal signs. Absent: distended, tenderness Additional comments: pain upon palpation in epigastric and ruq. - Extremities Exam Extremities exam: Present: warm, radial pulses palpable and symetrical. Absent : calf tenderness, cyanotic, pedal edema - Neurological Exam Neurological exam: Present: CN II-XII intact, oriented X3, no focal deficits. Absent: pronater drift, facial droop, speech deficit - Skin Skin exam: Present: dry, intact Internal Medicine: Result - Labs CBC & Chem 7: 10/14/16 04:05 10/14/16 04:05 Labs: Short CBC 10/14/16 Range/Units 04:05 WBC 6.2 (4.3-11.1) K/mcL Hgb 10.8 L (12.9-16.9) g/dL Hct 31.2 L (37.5-50.1) % Plt Count 257 (140-400) K/mcL Neutrophils # 4.8 (1.6-8.9) K/mcL BMP 10/14/16 04:05 Sodium 136 Potassium 3.6 Chloride 103 Carbon Dioxide 27 BUN 7 L Creatinine 0.58 L Glucose 98 Calcium 8.3 L - ABG Interpretation ABG results: PT/INR, D-dimer PT 12.1 Seconds (9.4-12.1) 10/11/16 13:42 Consult Discharge Plan - Plan Referrals: Óscar Mei Jr, MD [Primary Care Provider] -
[2016-10-14 12:27] LABS: Alanine Aminotransferase 13 Units/L (0-55); Albumin/Globulin Ratio 0.9 (1.1-2.2); Alkaline Phosphatase 69 Units/L (38-126); Aspartate Amino Transferase 15 Units/L (5-34); Bilirubin,Direct 0.2 mg/dL (0.0-0.5); Bilirubin,Indirect 0.3 mg/dL (0.0-1.2); Bilirubin,Total 0.5 mg/dL (0.2-1.2); Globulin 2.6 g/dL (2.4-3.5)
[2016-10-14 12:28] LABS: Albumin 2.4 g/dL (3.5-5.0)
--- NOTE | 2016-10-14 18:13 | Electrocardiograph Report ---
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
[2016-10-14] MEDS ORDERED: Magnesium Sulfate 1 GM in D5% in Water 100 ML IVPB ONE (20:00)
[2016-10-15 04:13] LABS: Basophils % 0.6 %; Eosinophils # 0.1 K/mcL (0.0-0.6); Eosinophils % 2.2 %; Hemoglobin 11.7 g/dL (12.9-16.9); Immature Granulocytes % 0.2 % (0-4); Lymphocytes # 0.9 K/mcL (0.6-4.6); Lymphocytes % 17.4 %; Mean Corpuscular HGB Conc 34.4 g/dL (31.6-35.5); Mean Corpuscular Hemoglobin 29.9 pg (28.0-33.3); Mean Platelet Volume 9.8 fL (9.4-12.4); Monocytes # 0.4 K/mcL (0.0-1.3); Monocytes % 7.8 %; Neutrophils # 3.9 K/mcL (1.6-8.9); Platelet Count 270 K/mcL (140-400); Red Blood Count 3.91 M/mcL (4.19-5.50); Red Cell Distribution Width 13.1 % (11.5-14.5); Segmented Neutrophils % 71.8 %
[2016-10-15 04:40] LABS: BUN/Creatinine Ratio 9 (6-26); Blood Urea Nitrogen 6 mg/dL (8-26); Calcium 8.6 mg/dL (8.6-10.8); Carbon Dioxide 28 mEq/L (19-29); Chloride 99 mEq/L (98-109); Glucose 176 mg/dL (70-99); Osmolality,Calculated 284 (280-300); Potassium 3.8 mEq/L (3.5-4.5); Sodium 136 mEq/L (136-145); eGFR For African Americans > 60 (> 60); eGFR For Non-African Americans > 60 (> 60)
[2016-10-15] MEDS: 0.9 % Sodium Chloride 1,000 ML IVC SCH (06:37)
[2016-10-15] MEDS: *HR* Heparin 5,000 UNIT/ML VIAL SQ SCH (06:37)
[2016-10-15] MEDS: Insulin LISPRO 300 UNITS/3 ML VIAL SQ SCH ×2 (09:30→12:33)
[2016-10-15] MEDS: Cholecalciferol (D-3) 1,000 UNIT TABLET PO SCH (09:33)
[2016-10-15] MEDS: CLOBETASOL PROPIONATE 15 GM TUBE TP SCH (09:34)
[2016-10-15] MEDS: levoFLOXacin 750 MG TABLET PO SCH (09:34)
[2016-10-15] MEDS: Pantoprazole 40 MG VIAL IVPB SCH (09:34)
[2016-10-15] MEDS: metroNIDAZOLE 500 MG TABLET PO SCH (09:34)
[2016-10-15 11:19] VITALS: BP 150/90
--- NOTE | 2016-10-15 11:41 | Discharge Summary ---
Date of Encounter: 10/15/16 Time of Encounter: 11:36 - Discharge Diagnosis (1) Sigmoiditis Priority: Primary Status: Acute (2) Hypokalemia Priority: Secondary Status: Acute (3) Hypomagnesemia Priority: Secondary Status: Acute (4) Cholelithiasis Priority: Secondary Status: Acute Qualifiers: Cholelithiasis location: gallbladder Cholecystitis presence: without cholecystitis Biliary obstruction: without biliary obstruction Qualified Code(s): K80.20 - Calculus of gallbladder without cholecystitis without obstruction (5) Urinary retention Priority: Secondary Status: Acute (6) DVT prophylaxis Priority: Secondary Status: Acute - Discharge Medications Prescriptions: Levofloxacin 750 mg PO DAILY #5 tablet Magnesium Oxide [Mag-Ox] 400 mg PO BID 30 Days MetroNIDAZOLE [Flagyl] 500 mg PO TID 5 Days Tamsulosin [Flomax] 0.4 mg PO HS #30 capsule Home Medications: Atorvastatin Calcium [Lipitor] 80 mg PO HS 10/11/16 [History] Cholecalciferol (D-3) [Vitamin D] 1,000 unit PO DAILY 10/11/16 [History] Clobetasol Propionate 0.05% [Temovate] 1 appl TP BID 10/11/16 [History] Clobetasol Propionate [Cormax] 1 appl TP BID PRN 10/11/16 [History] Clopidogrel [Plavix] 75 mg PO DAILY 10/11/16 [History] Dextrose [Glucose] 16 gm PO ONCE PRN 10/11/16 [History] Duloxetine HCl [Cymbalta] 60 mg PO DAILY 10/11/16 [History] Folic Acid 1 mg PO DAILY 10/11/16 [History] Insulin ASPART [NovoLOG] 18 unit SQ TIDWM 10/11/16 [History] Insulin DETEMIR [Levemir] 44 unit SQ BID 10/11/16 [History] Metformin HCl [Glucophage] 1,000 mg PO BID 10/11/16 [History] Methotrexate [Otrexup] 10 mg PO QWEEK 10/11/16 [History] Midodrine [ProAmatine] 5 mg PO 0800,1200,1700 10/11/16 [History] Levofloxacin 750 mg PO DAILY #5 tablet 10/15/16 [Rx] Magnesium Oxide [Mag-Ox] 400 mg PO BID 30 Days 10/15/16 [Rx] MetroNIDAZOLE [Flagyl] 500 mg PO TID 5 Days 10/15/16 [Rx] Tamsulosin [Flomax] 0.4 mg PO HS #30 capsule 10/15/16 [Rx] Allergies/Adverse Reactions: Allergies alcohol Adverse Reaction (Verified 10/11/16 16:04) See Comments per [place] list (BEER) Procedures/tests Complete & Pending: Procedures Performed prior 72 hours Category Date Time Status US gall bladder [US] Routine Exams 10/14/16 18:00 Completed ECG 12 lead ECG [ECG] Routine Y 10/14/16 12:00 Completed ECG 12 lead ECG [ECG] Routine Y 10/14/16 12:56 Completed Date of admission: 10/13/16 08:22 Primary care physician: Óscar Mei Jr, MD Consults: 10/13/16 08:59 Consult to Urology [CONS] Routine Consulting Provider: Urology [facility] Reason for Consult: urinary retention Call Completed: Yes Discharging clinician: Eloy Cornejo Anticipated date of discharge: 10/15/16 - Patient Status Disposition: Transfer SNF Condition: Serious Functional capacity at discharge: uses cane/walker Overall status at discharge: patient is progressing back to baseline - Discharge Instructions Follow Up With: Óscar Mei Jr, MD [Primary Care Provider] - Additional Instructions: Follow up with surgery for evaluation of cholelithiasis. - Diet and Activity Activity: as per physical therapy Diet: diabetic diet Interval History: Mr. Siu is a 61 year old male with PMH significant for psoriasis, DM2, GERD, HTN, CAD, colon cancer status post resection who presented to the ER for abdominal pain and constipation. He states that his symptoms started one week ago and he has not had a bowel movement since that time. He admits to small liquid bowel movements, but continues to feel distended. His abdominal pain causes him to have nausea and poor oral intake over this time period as well. He denies vomiting. He states that he did not have any blood in stools prior to the onset of his symptoms. He has never had anything like this before and he denies any recent changes to medications. His mother in law in the room states that the patient is typically bed bound and lives at home, but on good days he is able to ambulate around the house with a walker. He states that the reason for being bed bound is that he becomes very dizzy at times even when he sits up. He states that this has been ongoing for the past 10 months. 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 While in the ER he was given 2L of fluids and was started on metronidazol and levofloxacin for findings of sigmoiditis on abdominal CT. He was found to have a lactic acid of 7.2 and troponin of 1.94. He denies any chest pain. Hospital course: Mr. Siu is a 61 year old male he was admitted initially to the intensive care unit due to lactic acidosis with a lactic acid of 7.2 and troponin elevation in the setting of sigmoiditis, severe constipation and abdominal pain. Additionally, he had acute kidney injury. His creatinine upon admission was 2.35, after IV fluids it improved, today is 0.65. His initial GFR was 28, today is more than 60. The patient also had leukocytosis upon admission, leukocytosis resolved after antibiotics. Antibiotic was switched from IV to by mouth, he is currently on both Levaquin and Flagyl. She also was found to have a gallstone in the neck of the gallbladder, which was found in the abdomen CT, we obtain an abdomen ultrasound, there were no findings consistent with cholecystitis. The patient had a sigmoid diabetes which resolved. During admission orders for the patient developing urinary retention, he had a Goff catheter placed. 40 was removed later, however he had another event of retention and the urinary Goff catheter was placed again, he was evaluated by urology, they recommended to continue with the Goff catheter in and follow-up as outpatient. The patient was started on Flomax, the urologist recommended to continue with the same. The patient is on chronic Plavix for history of coronary artery disease. We will continue with Plavix. There was no chest pain or EKG changes, likely troponin elevation in light of acute kidney injury, severe pain, constipation, sigmoiditis. The patient has improved, is tolerating diet. I am going to discharge the patient. According to our evaluation from physical therapy the patient would benefit from continuing just At an extended care facility. In light of his finding of coronary giardiasis, I would recommend to follow up with a surgeon for an elective cholecystectomy. This was discussed with the patient, he expressed understanding. We will continue with magnesium supplementation via by mouth, monitor was recommended to the IV while in the hospital. The plan of care was explained in detail to the patient, he expressed understanding. - Time Spent with Patient Total time spent providing and/or coordinating discharge services: - Constitutional Vitals: Temp Pulse Resp BP Pulse Ox 97.7 F 81 17 150/90 99 10/15/16 11:14 10/15/16 11:14 10/15/16 11:14 10/15/16 11:14 10/15/16 11:14 General appearance: Present: cooperative, A&O X 3, pleasant Exam: goff catheter in clear urine in the goff bag - Head Head exam: Present: atraumatic, normocephalic - Eye Eye exam: Present: PERRL, conjuntiva pink, sclera anicteric Pupils: Present: PERRL - Neck Neck exam general surgery: Present: supple, trachea midline. Absent: lymphadenopathy - Respiratory Respiratory exam: Present: CTAB. Absent: accessory muscle use, rales, rhonchi, wheezes - Cardiovascular Cardiovascular exam: Present: RRR, +S1, +S2. Absent: diastolic murmur, gallop, rubs, systolic murmur - GI/Abdominal GI/Abdominal exam: Present: normal bowel sounds, soft, no peritoneal signs. Absent: distended, tenderness - Extremities Exam Extremities exam: Present: warm, radial pulses palpable and symetrical. Absent : calf tenderness, cyanotic, pedal edema - Neurological Exam Neurological exam: Present: CN II-XII intact, oriented X3, no focal deficits. Absent: pronater drift, facial droop, speech deficit - Skin Skin exam: Present: dry, intact - VTE Documentation of Mechanical Device: Intermittent pneumatic compression device
[2016-10-15] MEDS ORDERED: Magnesium Oxide 400 MG TABLET PO SCH (11:45)
--- NOTE | 2016-10-15 11:48 | Physician Discharge Referral ---
ExtendedCare Referral Info Transfer To: SNF Provider in Charge after Transfer: PCP Institutional Level of Care: Skilled - Diagnosis (1) Sigmoiditis Status: Acute (2) Hypokalemia Status: Acute (3) Hypomagnesemia Status: Acute (4) Cholelithiasis Status: Acute (5) Urinary retention Status: Acute (6) DVT prophylaxis Status: Acute - Transfer Medications Prescriptions: Levofloxacin 750 mg PO DAILY #5 tablet Magnesium Oxide [Mag-Ox] 400 mg PO BID 30 Days MetroNIDAZOLE [Flagyl] 500 mg PO TID 5 Days Tamsulosin [Flomax] 0.4 mg PO HS #30 capsule Home Medications: Atorvastatin Calcium [Lipitor] 80 mg PO HS 10/11/16 [History] Cholecalciferol (D-3) [Vitamin D] 1,000 unit PO DAILY 10/11/16 [History] Clobetasol Propionate 0.05% [Temovate] 1 appl TP BID 10/11/16 [History] Clobetasol Propionate [Cormax] 1 appl TP BID PRN 10/11/16 [History] Clopidogrel [Plavix] 75 mg PO DAILY 10/11/16 [History] Dextrose [Glucose] 16 gm PO ONCE PRN 10/11/16 [History] Duloxetine HCl [Cymbalta] 60 mg PO DAILY 10/11/16 [History] Folic Acid 1 mg PO DAILY 10/11/16 [History] Insulin ASPART [NovoLOG] 18 unit SQ TIDWM 10/11/16 [History] Insulin DETEMIR [Levemir] 44 unit SQ BID 10/11/16 [History] Metformin HCl [Glucophage] 1,000 mg PO BID 10/11/16 [History] Methotrexate [Otrexup] 10 mg PO QWEEK 10/11/16 [History] Midodrine [ProAmatine] 5 mg PO 0800,1200,1700 10/11/16 [History] Levofloxacin 750 mg PO DAILY #5 tablet 10/15/16 [Rx] Magnesium Oxide [Mag-Ox] 400 mg PO BID 30 Days 10/15/16 [Rx] MetroNIDAZOLE [Flagyl] 500 mg PO TID 5 Days 10/15/16 [Rx] Tamsulosin [Flomax] 0.4 mg PO HS #30 capsule 10/15/16 [Rx] Allergies/Adverse Reactions: Allergies alcohol Adverse Reaction (Verified 10/11/16 16:04) See Comments per [facility] list ([facility]) - Respiratory Orders Smoking Cessation: Smoking cessation has been advised. For more information, call the [place] Tobacco Quit Line at 3-168-TDYN-NOW. - Advance Directives Code Status: Full Code - Mobility Orders Other (as per PT) - Rehabiliation Orders Rehab Potential: Fair Rehab Orders: ROM Exercises, Evaluation for Physical Therapy, Evaluation for Occupational Therapy - Diet Orders Cardiac (ADA) CERTIFICATION: I certify that the transfer of the above named patient to an Extended Care Facility is necessary for the continuing treatment of the diagnosis listed. The above information is true and accurate reflection of patient's current condition. Confidential - Redisclosure prohibited without a patient's written consent.
--- NOTE | 2016-10-15 12:38 | Electrocardiograph Report ---
[address] [address] Test Date: 2016-10-13 Pat Name: Wilder Siu Department: 113 Room: 3B Gender: M Roll Filler: : 1955 Requested By: Eloy Cornejo Order Number: [id number] Reading MD: Ashley Nolan Measurements Intervals [place] Rate: 73 P: 54 NE: 174 QRS: 34 QRSD: 98 T: 62 QT: 405 QTc: 431 Interpretive Statements SINUS RHYTHM Electronically Signed On 10-15-2016 12:37:03 EDT by Ashley Nolan
[2016-10-16 11:00] LABS: Magnesium 1.6 mg/dL (1.6-2.6)
[2016-10-18] MEDS ORDERED: *HR* Methotrexate 2.5 MG TABLET PO SCH (17:00)
== END 2016-10-15 14:30 | DRG 392 ==
LOC: ICNU 13:35 → EMEROO 13:35 → SUATTDRO 15:59 → ICNU 16:47 → 3BNU 10-12 11:03
PROVIDERS: ADMIT Internal Medicine; ATTEND Internal Medicine